=== PATIENT | female | born 1935 | race Caucasian/White ===

== ENCOUNTER 2016-12-23 16:23 | Emergency (ER) | payer MEDICARE, BC ==
--- NOTE | ~2016-12-23 | CT4 ---
[facility]. [facility] A Service of [facility] RADIOLOGY TEXT RESULTS PATIENT: DENIS MARTINES LOCATION: SED : 33 UNIT #: [id number] AGE: [address]: Alex Khan MD SEX: F ORDER DR: [id number] [address] [address] [id number] MR#: [id number] Acc #: [id number] NAME: DENIS MARTINES : 1935 SEX: F STUDY DATE/TIME: 12/23/2016 18:13 UNIT: SED ROOM: STUDY DESCRIPTION: CT Abd and Pelv Wo Cont Attending Physician: Alex Khan M.D. Ordering Physician: Alex Khan M.D. Primary Care Physician: Raad Manning M.D. MEDICAL IMAGING REPORT This report is preliminary unless electronic signature is present. EXAM CT scan of the abdomen and pelvis without contrast, 12/23/2016. HISTORY Abdominal pain and pressure for [address] was performed through the abdomen and pelvis without oral or intravenous contrast administration, as per clinician request. This CT exam was performed with one or more of the following radiation dose reduction techniques: automatic exposure control, adjustment of mA and/or kV according to patient size, and iterative reconstruction. FINDINGS ABDOMEN: The exam is limited by the lack of oral and intravenous contrast. The liver, spleen, pancreas and adrenal glands are normal. Calcified granulomas are seen in the spleen. The gallbladder is surgically absent. The kidneys are normal. PELVIS: There is colonic diverticulosis without evidence of diverticulitis. The gut is otherwise unremarkable. No adenopathy is seen, and there is no free fluid in the abdomen or pelvis. Note is made of small right inguinal hernia containing mesenteric fat, as well as a loop of small bowel without evidence of bowel obstruction. The lung bases are normal. IMPRESSION 1. The examination is limited by the lack of oral and intravenous contrast. 2. Surgical absence of the gallbladder. 3. Diverticulosis; no evidence of diverticulitis. [facility] A Service of [facility] RADIOLOGY TEXT RESULTS PATIENT: DENIS MARTINES [place] [facility] [place] 34 UNIT #: [id number] AGE: [address]: Alex Khan MD SEX: F ORDER DR: 4. Right inguinal hernia containing a loop of small bowel without evidence of bowel obstruction. 5. Right inguinal hernia containing only fat. Dictated by... Agustin Johnson M.D. THIS IS AN ELECTRONICALLY VERIFIED REPORT Agustin Johnson M.D. at 12/24/2016 2:14 PM CARO/susy TD: 12/24/2016 09:10 JOB #: [id number] MEDICAL IMAGING REPORT
[~2016-12-23 16:23] MED LIST: ALLEGRA180 MG PO; ALLERGY RELIEF10 M1 PO; ASPIRIN81 M1 PO; ASPIRIN81 M2 PO; BENICAR PO; BIOTIN PO; BIOTIN10 MG PO; CALAN PO; CALCIUM 1,2001 EACH PO; CELEXA PO; CELEXA20 MG PO; CENTRUM SILVER; CENTRUM SILVER PO; CLARITIN10 M1 PO; CO Q-1010 MG PO; FISH OIL; FISH OIL 1,0001 CAP PO; FISH OIL 1,001000 M1; FISH OIL 1,2001 CAP PO; FLONASE16 GM; FLUTICASONE SPRAY; GLUCOSAMINE & C1 CAP PO; HYDRALAZINE HCL50 MG PO; L-LYSINE500 M2 PO; MAG-OX 400400 MG PO; MAGNESIUM PO; MAGNESIUM200 MG PO; MONTELUKAST SOD10 MG PO; MULTI VITAMIN1 EACH PO; OMEPRAZOLE PO; OMEPRAZOLE20 M1 PO; OSTEO BI-FLEX PO; PHENERGAN PO; PRILOSEC PO; SIMVASTATIN20 MG PO; SUPER B COMPLEX1 CAP PO; VERAPAMIL ER240 MG PO; VITAMIN C500 M1 PO; ZINC50 M1 PO; ZOCOR PO; ZOCOR20 MG PO; [UNRECOGNIZED DRUG - OTHER] PO
[2016-12-23 16:43] LABS: BASOPHIL# 0.1 X10e3 (0-0.3); BASOPHIL% 1.3 % (0-2.5); EOSINOPHIL# 0.2 X10e3 (0-0.7); EOSINOPHIL% 2.3 % (0.0-7.0); HEMATOCRIT 43.1 % (35.0-45.0); HEMOGLOBIN 14.2 gm/dL (12.0-16.0); LYMPHOCYTE# 2.5 X10e3 (1.0-3.5); MEAN CELL VOLUME 88.1 FL (83-96); MEAN CORPUSCULAR HGB CONC 32.9 g/dL (30-36); MONOCYTE# 1.1 X10e3 (0-1.0); NEUTROPHIL% 56.4 % (40-75); PLATELET COUNT 230 X10e3 (140-420); RED BLOOD COUNT 4.89 X10e (3.90-5.30); RED CELL DISTRIBUTION WIDTH 15.3 % (11.0-15.5); WHITE BLOOD COUNT 8.8 X10e3 (4.0-10.5)
[2016-12-23 16:56] LABS: DIFF IND NO
[2016-12-23 17:07] LABS: ALBUMIN SERUM 3.8 g/dL (3.5-5.0); ALKALINE PHOSPHATASE 62 U/L (32-92); ALT (SGPT) 21 U/L (10-40); AMYLASE 27 U/L (0-46); AST (SGOT) 26 U/L (10-42); BILIRUBIN,TOTAL 0.5 mg/dL (0.2-2.0); BLOOD UREA NITROGEN 14 mg/dL (9-23); CALCIUM SERUM 9.8 mg/dL (8.4-10.2); CARBON DIOXIDE 28 mmol/L (22-31); CHLORIDE 98 mmol/L (100-111); CREATININE SERUM 0.5 mg/dL (0.6-1.4); GLOM FILT RATE Estimated ABOVE60 mL/min (>60); GLUCOSE FASTING 102 mg/dL (70-110); LIPASE 38 U/L (22-51); POTASSIUM 3.9 mmol/L (3.5-5.1); PROTEIN TOTAL SERUM 7.7 g/dL (6.0-8.3); SODIUM 133 mmol/L (135-145)
[2016-12-23 17:08] LABS: BILIRUBIN, DIRECT <0.1 mg/dL (0.0-0.2); BILIRUBIN,INDIRECT 0.4 mg/dL (0.0-0.9)
[2016-12-23 17:37] LABS: URINE SOURCE CLEAN CATCH
[2016-12-23 17:40] LABS: URINE APPEARANCE CLEAR; URINE BILIRUBIN NEG (NEG); URINE BLOOD TRACE-INTACT (NEG); URINE COLOR YELLOW; URINE GLUCOSE NEG (NORM); URINE KETONE NEG (NEG); URINE LEUKOCYTE ESTERASE NEG (NEG); URINE NITRATE NEG (NEG); URINE PROTEIN NEG (NEG); URINE UROBILINOGEN 0.2 MG/DL (NORM)
[2016-12-23 17:41] LABS: MICRO INDICATED? YES
[2016-12-23 17:48] LABS: CULTURE INDICATED? NO; URINE BACTERIA NEG (NEG); URINE SQUAMOUS EPITHELIAL CELL MODERATE /[HPF]; URINE WBC 0-2 /[HPF] (0-5)
== END 2016-12-23 18:50 | disposition home or self-care (01) ==
LOC: SED 16:23
PROVIDERS: Emergency Medicine
DX: K57.32 Diverticulitis of large intestine without perforation or abscess without bleeding (principal); K21.9 Gastro-esophageal reflux disease without esophagitis; F32.9 Major depressive disorder, single episode, unspecified; Z90.49 Acquired absence of other specified parts of digestive tract; Z98.890 Other specified postprocedural states; Z88.5 Allergy status to narcotic agent; Z79.899 Other long term (current) drug therapy; Z79.82 Long term (current) use of aspirin
CPT/HCPCS: 36415; 74176; 80048; 80076; 81003; 82150; 83690; 85025; 96361; 96374; 96375; 99284; 99285; J1885; J2405

== ENCOUNTER 2016-12-26 21:10 | Emergency (ER) | payer MEDICARE, BC | END 2016-12-26 21:19 | disposition home or self-care (01) | LOC: SED 21:10 | DX: Z53.21 Procedure and treatment not carried out due to patient leaving prior to being seen by health care provider (principal) ==

== ENCOUNTER → 2017-01-05 | Outpatient (CLI) | payer MEDICARE, BC ==
--- NOTE | ~2017-01-05 | CT2 ---
[facility] A Service of [facility] RADIOLOGY TEXT RESULTS PATIENT: DENIS MARTINES LOCATION: [facility] : 34 UNIT #: [id number] AGE: [address]: Donna Cobb MD SEX: F ORDER DR: [id number] [place] [id number] MR#: [id number] #: [id number] NAME: DENIS MARTINES : 1935 SEX: F STUDY DATE/TIME: 01/05/2017 12:44 UNIT: [facility] ROOM: STUDY DESCRIPTION: CT Abd and Pelv W Cont Attending Physician: Donna Cobb M.D. Ordering Physician: Donna Cobb M.D. MEDICAL IMAGING REPORT This report is preliminary unless electronic signature is present. EXAM CT abdomen and pelvis with contrast. INDICATION Right lower quadrant abdominal pain for the past 2 weeks. PROCEDURE Contrast-enhanced CT of the abdomen and pelvis. 100 mL of Isovue-370. This CT exam was performed with one or more of the following radiation dose reduction techniques: automatic exposure control, adjustment of mA and/or kV according to patient size, and iterative reconstruction. COMPARISON STUDIES 12/13/2016 FINDINGS ABDOMEN WITH CONTRAST: Included lung bases are clear. There is a 6 mm cyst in the left hepatic lobe. The spleen, kidneys, adrenal glands, pancreas are unremarkable. Previous cholecystectomy. Colonic diverticula with no convincing evidence for acute complication. PELVIS WITH CONTRAST: No pelvic mass or fluid. No aggressive appearing bone lesion. IMPRESSION 1. No clearly acute finding. 2. Colonic diverticulosis with no definitive evidence for acute complication. [facility] A Service of [facility] RADIOLOGY TEXT RESULTS PATIENT: DENIS MARTINES LOCATION: [facility] : 34 UNIT #: [id number] AGE: [address]: Donna Cobb MD SEX: F ORDER DR: Dictated by... Orlando Camacho M.D. THIS IS AN ELECTRONICALLY VERIFIED REPORT Orlando Camacho M.D. at 01/05/2017 5:05 PM AXEL/tal TD: 01/05/2017 14:30 JOB #: [id number] MEDICAL IMAGING REPORT Page 1 of 1
[2017-01-05 14:35] LABS: POC - CREATININE 0.79 mg/dL (0.44-1.03); POC - GFR >60.0 mL/min (>60)
== END | disposition home or self-care (01) ==
LOC: SCT 10:59
PROVIDERS: Family Medicine
DX: R19.7 Diarrhea, unspecified (principal); R10.30 Lower abdominal pain, unspecified; K57.30 Diverticulosis of large intestine without perforation or abscess without bleeding
CPT/HCPCS: 74177; 82565; Q9967